=== PATIENT | male | born 1985 | race Caucasian/White ===

== ENCOUNTER 2017-10-04 09:42 | Emergency (ER) | payer BC, OTHER ==
[~2017-10-04] VITALS: Ht 198.1 cm; Wt 131.5 kg
[2017-10-04] MEDS ORDERED: LIDOCAINE 1% INJ 50 ML (XYLOCAINE) VIAL IJ STA (10:01)
[2017-10-04] MEDS ORDERED: TETANUS,DIPTH,PERTUSS P/F (BOOSTRIX) 0.5 ML VIAL IM STA (10:01)
[2017-10-04] MEDS ORDERED: LIDOCAINE 1% INJ 20 ML 20 ML VIAL ONE (10:06)
[2017-10-04] MEDS ORDERED: CEPH500T PO (10:23)
--- NOTE | 2017-10-04 10:23 | ED Lower Extremity ---
General Chief Complaint: Laceration Stated Complaint: CHOPPED TOE WITH AX Nursing Triage Note: PT USING AN AXE TO OPEN A BOX. CUT THROUGH HIS SHOE INTO RT GREAT TOE. BLEEDING CONTROLED. Nursing Sepsis Screen: No Definite Risk Source: patient Exam Limitations: no limitations History of Present Illness Date Seen by Provider: Oct 04, 2017 Time Seen by Provider: 09:58 Initial Comments Here with report of right great toe pain after he accidentally cut his toe with an ax when he was opening a box. Denies other injury. He was wearing tennis she at the time. Tetanus is not up-to-date. Onset: just prior to arrival Severity: moderate Pain/Injury Location: right 1st toe Method of Injury: incised Modifying Factors: Improves With Immobilization; Worse With Movement Allergies and Home Medications Allergies Coded Allergies: No Known Drug Allergies (Unverified , 10/04/17) Home Medications Cephalexin 500 Mg Tablet, 500 MG PO QID Prescribed by: MAUDE SNYDER on 10/04/17 1023 Patient Home Medication List Home Medication List Reviewed: Yes Constitutional: see HPI; No chills, No fever Respiratory: no symptoms reported Cardiovascular: no symptoms reported Musculoskeletal: see HPI; No joint pain; muscle pain Skin: lesions Psychiatric/Neurological: No Symptoms Reported Past Sppmswq-[id number]-Pdxuos Hx Past Med/Social Hx: Reviewed Nursing Past Med/Soc Hx Patient Social History Alcohol Use: Denies Use Recreational Drug Use: No Smoking Status: Never a Smoker Recent Foreign Travel: No Contact w/Someone Who Travel: No Recent Infectious Disease Expo: No Physical Abuse: No Sexual Abuse: No Mistreated: No Fear: No Past Medical History Surgeries: Yes Tonsillectomy Respiratory: No Cardiac: No Neurological: No Genitourinary: No Gastrointestinal: No Musculoskeletal: No Endocrine: No Cancer: No Nursing Suicide Risk Score: 0 Family Medical History No Pertinent Family Hx Physical Exam Vital Signs Vital Signs - First Documented 10/04/17 10:06 Temp 99.2 Pulse 60 Resp 20 B/P (MAP) 154/93 (113) Pulse Ox 97 O2 Delivery Room Air Capillary Refill : Less Than 3 Seconds General Appearance: WD/WN, no apparent distress Neck: full range of motion, supple Cardiovascular: regular rate, rhythm, no murmur Respiratory: lungs clear, normal breath sounds Feet: right foot other (2 cm laceration to the dorsum of the right great toe. Bleeding controlled. Retains range of motion and distal sensation and circulation.) Neurologic/Psychiatric: alert, oriented x 3 Skin: warm/dry, other (laceration as listed above) Procedures/Interventions Wound Location: Lower Extremities Other Wound Location Right great toe Wound Length (cm): 2 Wound's Depth, Shape: superficial Wound Explored: contaminated Irrigated w/ Saline (ccs): 125 Betadine Prep?: Yes Anesthesia: 1% Lidocaine Volume Anesthetic (ccs): 3 Wound Debrided: minimal Suture: Prolene Suture Size: 4-0 Number of Sutures: 5 Layer Closure?: 1 Number Deep Layer Sutures: 0 Sterile Dressing Applied?: Yes Progress Tolerated procedure well with no help location. Wound covered with antibiotic ointment and dressing by me. Progress/Results/Core Measures Results/Orders My Orders Orders - MAUDE SNYDER MD Dipht,Paramjit(Acell),Tet Adult (Boostrix (10/04/17 10:01) Lidocaine 1% Inj 50 Ml (Xylocaine 1% Inj (10/04/17 10:01) Lidocaine 1% Inj 20 Ml (Xylocaine 1% Inj (10/04/17 10:06) Medications Given in ED Current Medications Medications Dose Ordered Sig/Amador Route Start Time Stop Time Status Last Admin Dose Admin Lidocaine HCl 20 ml STK-MED ONCE .ROUTE 10/04/17 10:06 10/04/17 10:07 DC 10/04/17 10:10 10 ML Vital Signs/I&O 10/04/17 10:06 Temp 99.2 Pulse 60 Resp 20 B/P (MAP) 154/93 (113) Pulse Ox 97 O2 Delivery Room Air Blood Pressure Mean: 113 Progress Progress Note : Progress Note Seen and evaluated. Tetanus updated. Suture repair by me. Discharged home with return precautions. Patient family verbalize understanding instructions and agreement with plan. Departure Impression Primary Impression: Laceration of right great toe Qualified Codes: S91.111A - Laceration without foreign body of right great toe without damage to nail, initial encounter Disposition: HOME, SELF-CARE Condition: Improved Departure-Patient Inst. Decision time for Depature: 10:22 Referrals: NO,LOCAL PHYSICIAN (PCP) Primary Care Physician Patient Instructions: Laceration Repair With Stitches (DC) Add. Discharge Instructions: All discharge instructions reviewed with patient and/or family. Voiced understanding. Sutures out in 10-14 days. You may use antibiotic ointment and Band-Aid over wound to keep it clean and protected from rubbing. Use the antibiotic ointment for the next 4-5 days and then dry Band-Aid afterwards. You may shower but do not soak wound in bathtub, [place], stream or pool. Return for worsening, fever, red streaks up the foot or leg, foul-smelling drainage or other concerns as needed. Scripts Cephalexin (Cephalexin) 500 Mg Tablet 500 MG PO QID, #20 TAB 0 Refills Prov: MAUDE SNYDER MD 10/04/17 MAUDE SNYDER MD Oct 04, 2017 10:23
[2017-10-04 10:58] VITALS: BP 151/95
== END 2017-10-04 10:58 | disposition home or self-care (01) ==
LOC: EDUNIT# 09:42 → ER 09:46
DX: S91.121A Laceration with foreign body of right great toe without damage to nail, initial encounter (principal); Z23 Encounter for immunization; Z90.89 Acquired absence of other organs; W27.0XXA Contact with workbench tool, initial encounter
CPT/HCPCS: 12001; 90471; 90715